=== PATIENT | female | born 1980 | race Caucasian/White ===

== ENCOUNTER 2017-02-18 10:01 | Emergency (ER) | payer BC, OTHER ==
[~2017-02-18] VITALS: Ht 154.9 cm; Wt 43.5 kg
[2017-02-18 10:06] VITALS: TEMP 36.5; Ht 154.9 cm; Wt 43.5 kg
[2017-02-18] MEDS ORDERED: RIZA5TAB10 PO (10:42)
[2017-02-18] MEDS ORDERED: PROCHLORPERAZINE 5 MG/ML 2 ML VIAL IV STA (11:18)
[2017-02-18] MEDS ORDERED: ONDANSETRON INJ 2 MG/ML 2 ML VIAL IV STA (11:18)
[2017-02-18] MEDS ORDERED: SODIUM CHLORIDE 0.9% 1000ML 1,000 ML IV STA (11:18)
[2017-02-18] MEDS ORDERED: DiphenhydrAMINE HCL 50 MG/ML VIAL IV STA (11:18)
--- NOTE | 2017-02-18 11:41 | DIAGNOSTIC IMAGING REPORT ---
CT SCAN OF THE BRAIN WITHOUT IV CONTRAST CLINICAL HISTORY: Headache. COMPARISON STUDY: CT of the brain dated 12/15/2013. MRI of the brain dated 06/18/2016. TECHNIQUE: Unenhanced axial CT scan of the brain is performed from the vertex to the skull base. Automated dose control exposure was utilized. CT DOSE: 537.48 mGy.cm FINDINGS: Brain parenchyma: The brain parenchyma is normal in appearance. There is no hemorrhage, mass effect, or evidence of acute territorial ischemia by CT criteria. A cleft at the left parietal/occipital lobe junction is unchanged from previous. Mitchell-white matter is preserved. No extra-axial fluid collection is seen. Ventricles, sulci, cisterns: Normal in configuration. Intracranial vasculature: The visualized intracranial vasculature at the skull base is normal in appearance. Calvarium: Unremarkable. Sinuses and mastoids: The visualized paranasal sinuses are clear. The mastoid air cells are well pneumatized. Orbits: The bony orbits are grossly intact. IMPRESSION: No acute intracranial abnormality. Electronically signed by: Skip Aquino M.D. 02/18/2017 11:39 AM Dictated Date/Time: 02/18/2017 11:37 AM
[2017-02-18 13:30] VITALS: BP 120/79; PULSE 69; O2SAT 98
--- NOTE | 2017-02-18 17:12 | EMERGENCY ROOM VISIT NOTE ---
History Report prepared by [place]: Court Miguel Under the Supervision of: Dr. Tyrell Yusuf D.O. First contact with patient: 11:01 Chief Complaint: HEADACHE Stated Complaint: MIGRAINE, NAUSEA, VOMITING History of Present Illness The patient is a 36 year old female who presents to the Emergency Room with complaints of constant headache for the past few days. The patient has a history of migraine headaches. She typically gets a migraine once a month at the beginning of her menstrual period. She states that over the past week she has had 4 migraine headaches. This current headache has been going on for the past 3-4 days. Her pain is usually located diffusely throughout her head, but this particular headache is located behind her right eye and into the right side of her neck. The patient states that she woke up with this migraine and it quickly worsened over 45 minutes, usually her headaches worsen more gradually. She rates her current pain as a 9/10 in severity. Light exacerbates her pain. She has had nausea and vomiting today with her symptoms which is also atypical of her normal migraines. This is not the worst headache of her life. She states that this headache is just slightly different from the pattern of her typical migraine headaches. The patient follows up with a neurologist for her migraines and took Rizatriptan at home for her symptoms. She denies fevers, cough, weakness, numbness, and changes in vision. The patient has had rhinorrhea and sinus congestion for the past few days. She is currently at the end of her menstrual period. Source of History: patient Onset: 3-4 days ago Position: head Symptom Intensity: 9/10 Timing: constant Modifying Factors (Worsening): other (light) Associated Symptoms: + nausea, + vomiting, No cough, No fevers, No numbness , No weakness Review of Systems See HPI for pertinent positives & negatives. A total of 10 systems reviewed and were otherwise negative. Past Medical & Surgical Medical Problems: (1) Appendectomy (2) Migraine Unspecified W/O Intract Mgrn W/O Status Migrainosus (3) Ovarian Cyst Nec/Nos (4) PERSONAL HX OF TIA,& CEREBRAL INFARCTION W/OUT RES DEFICITS Family History FH: heart disease Hypertension Social History Smoking Status: Never Smoker Alcohol Use: none Drug Use: none Marital Status: Housing Status: lives with family Occupation Status: employed Current/Historical Medications Scheduled PRN Rizatriptan Benzoate (Maxalt), 5 MG PO UD PRN for Migraine Allergies Coded Allergies: Neomycin (Unverified Allergy, Mild, 09/01/16) Penicillins (Unverified Allergy, Mild, 09/01/16) Physical Exam Vital Signs Date Time Temp Pulse Resp B/P Pulse Ox O2 Delivery O2 Flow Rate FiO2 02/18/17 13:30 69 18 120/79 98 02/18/17 11:50 70 18 119/84 98 Room Air 02/18/17 10:06 36.5 76 18 131/95 100 Room Air Physical Exam GENERAL: alert, sitting up in bed, well appearing, well nourished, no distress, non-toxic EYE EXAM: normal conjunctiva, PERRL and EOM's intact OROPHARYNX: no exudate, no erythema, lips, buccal mucosa, and tongue normal and mucous membranes are moist NECK: supple, no nuchal rigidity, no adenopathy, non-tender LUNGS: Clear to auscultation. Normal chest wall mechanics HEART: no murmurs, S1 normal and S2 normal ABDOMEN: abdomen soft, non-tender, normo-active bowel sounds, no masses, no rebound or guarding. BACK: Back is symmetrical on inspection and there is no deformity, no midline tenderness, no CVA tenderness. SKIN: no rashes and no bruising UPPER EXTREMITIES: upper extremities are grossly normal. LOWER EXTREMITIES: No pitting edema. NEURO EXAM: Normal sensorium, cranial nerves II-XII intact, normal speech, no weakness of arms, no weakness of legs. No drift. Finger to nose intact. Gross sensation intact. Medical Decision & Procedures ER Provider Diagnostic Interpretation: Radiology results as stated below per my review and the radiologist's interpretation: CT SCAN OF THE BRAIN WITHOUT IV CONTRAST CLINICAL HISTORY: Headache. COMPARISON STUDY: CT of the brain dated 12/15/2013. MRI of the brain dated 06/18/2016. TECHNIQUE: Unenhanced axial CT scan of the brain is performed from the vertex to the skull base. Automated dose control exposure was utilized. CT DOSE: 537.48 mGy.cm FINDINGS: Brain parenchyma: The brain parenchyma is normal in appearance. There is no hemorrhage, mass effect, or evidence of acute territorial ischemia by CT criteria. A cleft at the left parietal/occipital lobe junction is unchanged from previous. Mitchell-white matter is preserved. No extra-axial fluid collection is seen. Ventricles, sulci, cisterns: Normal in configuration. Intracranial vasculature: The visualized intracranial vasculature at the skull base is normal in appearance. Calvarium: Unremarkable. Sinuses and mastoids: The visualized paranasal sinuses are clear. The mastoid air cells are well pneumatized. Orbits: The bony orbits are grossly intact. IMPRESSION: No acute intracranial abnormality. Electronically signed by: Skip Aquino M.D. 02/18/2017 11:39 AM Dictated Date/Time: 02/18/2017 11:37 AM Medications Administered Medications (Trade) Dose Ordered Sig/Cherelle Route Start Time Stop Time Status Last Admin Dose Admin Sodium Chloride (Nss 1000ml) 1,000 ml @ 999 mls/hr Q1H1M STAT IV 02/18/17 11:18 02/18/17 12:18 DC 02/18/17 11:25 999 MLS/HR Ondansetron HCl (Zofran Inj) 4 mg NOW STAT IV 02/18/17 11:18 02/18/17 11:21 DC 02/18/17 11:52 4 MG Prochlorperazine Edisylate (Compazine Inj) 10 mg NOW STAT IV 02/18/17 11:18 02/18/17 11:21 DC 02/18/17 11:52 10 MG Diphenhydramine HCl (Benadryl Inj) 50 mg NOW STAT IV 02/18/17 11:18 02/18/17 11:22 DC 02/18/17 11:52 50 MG ED Course ED COURSE: Vital signs were reviewed and showed normal vitals. The patients medical record was reviewed The above diagnostic studies were performed and reviewed. ED treatments and interventions as stated above. 1101: The patient was evaluated in room A12B. A complete history and physical examination was performed. 1118: Benadryl 50 mg IV, Compazine 10 mg IV, Zofran 4 mg IV, NSS 1000 ml @ 999 mls/hr IV 1209: I reassessed the patient and she is doing well. 1322: Upon reevaluation, the patient is feeling better and resting comfortably. I discussed my findings with the patient and she understands and agrees with the treatment plan. Based on the patients age, coexisting illnesses, exam and lab findings the decision to treat as an outpatient was made. The patient remained stable while under my care. The patient appeared well at the time of discharge. Medical Decision Differential Diagnosis includes but is not limited to headache, tension headache , cluster headache, migraine, subarachnoid hemorrhage, meningitis, mass, central venous thrombus, concussion, trauma and epidural/subdural hemorrhage. Patient is a 36-year-old female with a past medical history of migraines who notes that over the past 6 days she has gotten for separate migraines. She notes that her headaches normally come and go around her menstrual. She is currently finishing up her menstrual period. She is completely neurologically intact. Headache came on gradually and progressively worsened over an hour. There is no focal deficit. No fevers. No signs of meningitis or encephalitis. CT head was performed and was unremarkable. This was done a headache is normally diffuse but this was more focal on the right side. Following the negative CT I did offer LP but patient declined. She felt significantly better following IV normal saline, Compazine, and Benadryl. Following a three-hour observation, patient was discharged follow-up with her primary care doctor and neurology. Discussed with Pt concerning signs and symptoms to watch out for. Pt was instructed to follow up with their PCP and discussed with the patient their option to return to the ED at anytime for persistent or worsening symptoms. The appropriate anticipatory guidance and out-patient management, including indications for return to the emergency department, were explained at length to the patient and understood. Impression Primary Impression: Cephalgia Scribe Attestation The scribe's documentation has been prepared under my direction and personally reviewed by me in its entirety. I confirm that the note above accurately reflects all work, treatment, procedures, and medical decision making performed by me. Departure Information Dispostion Home / Self-Care Referrals No Doctor, Assigned (PCP) Neda Weiss,DO Forms HOME CARE DOCUMENTATION FORM, IMPORTANT VISIT INFORMATION Patient Instructions Headache Pain, My [facility] Additional Instructions Please follow up with your primary care doctor with in the next 24 hours. Any worsening of your symptoms, please return to the ED immediately. This includes confusion, weakness of your arms or legs, change in vision, sudden worsening of the headache, fevers greater than 100.4, stiff neck, or any other concerning signs or symptoms from your standpoint. His do not drive, work, operate heavy machinery for the next 8 hours. Problem Qualifiers Primary Impression: Cephalgia Headache type: unspecified Headache chronicity pattern: unspecified pattern Intractability: not intractable Qualified Codes: R51 - Headache
== END 2017-02-18 13:34 | disposition home or self-care (01) ==
LOC: C.EDB 10:03 → C.EDA 13:34
DX: R51 Headache (principal); N83.209 Unspecified ovarian cyst, unspecified side; Z86.73 Personal history of transient ischemic attack (TIA), and cerebral infarction without residual deficits; Z98.890 Other specified postprocedural states; Z88.0 Allergy status to penicillin; Z88.8 Allergy status to other drugs, medicaments and biological substances; Z82.49 Family history of ischemic heart disease and other diseases of the circulatory system

== ENCOUNTER → 2018-01-10 | Outpatient (CLI) | payer BC, OTHER ==
[~2018-01-10] MED LIST: RIZA5TAB10 PO
--- NOTE | 2018-01-10 13:36 | DIAGNOSTIC IMAGING REPORT ---
CERVICAL SPINE 4 OR 5 VIEWS HISTORY: Pain. NECK PAIN COMPARISON: None. FINDINGS: The cervical spine is visualized from C1 through the superior endplate of T1. There is no fracture. No subluxation. Disc spaces are preserved. Prevertebral soft tissues and the atlantodens interval are intact. IMPRESSION: No fracture or subluxation within the cervical spine. The above report was generated using voice recognition software. It may contain grammatical, syntax or spelling errors. Electronically signed by: Jaison Salcedo M.D. 01/10/2018 1:35 PM Dictated Date/Time: 01/10/2018 1:34 PM
== END | disposition home or self-care (01) ==
LOC: C.RDSM 15:41
PROVIDERS: ATTEND Family Medicine
DX: M54.2 Cervicalgia (principal)

== ENCOUNTER → 2018-02-01 | Outpatient (CLI) | payer OTHER | END | disposition home or self-care (01) | LOC: C.LAB 07:09 | PROVIDERS: ATTEND Nutritionist | DX: R53.83 Other fatigue (principal) ==